=== PATIENT | female | born 1995 | race Caucasian/White ===

== ENCOUNTER 2017-05-27 13:17 | Emergency (ER) | payer OTHER ==
[~2017-05-27] VITALS: Ht 177.8 cm; Wt 61.2 kg
[~2017-05-27 13:17] MED LIST: ABILIFY5 MG; ANTIVERT25 MG PO; ANUSOL-HC30 GM PR; AUGMENTIN 875-1 EACH PO; CIPRO500 MG PO; FIORINAL 50-321 EACH PO; IBUPROFEN600 MG PO; NAPROSYN500 MG PO; NORCO 5-325 TA1 EACH PO; NORTREL1 EAC1 PO; PROMETHAZINE V240 ML PO; TYLENOL WITH C1 EACH PO; ZOFRAN ODT4 MG PO; ZOFRAN4 MG PO
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
[2017-05-27] MEDS ORDERED: ZOFRAN ODT4 MG PO (15:27)
== END 2017-05-27 15:35 | disposition home or self-care (01) ==
LOC: ED 13:17
DX: O21.0 Mild hyperemesis gravidarum (principal); Z3A.01 Less than 8 weeks gestation of pregnancy
CPT/HCPCS: 80053; 81001; 84703; 85025; 96374; 99283; J2405; J7030; J7040

== ENCOUNTER 2017-06-17 11:23 | Emergency (ER) | payer OTHER ==
[~2017-06-17] VITALS: Ht 177.8 cm; Wt 63.5 kg
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
[2017-06-17] MEDS ORDERED: ZOFRAN ODT4 MG PO (11:48)
== END 2017-06-17 12:38 | disposition home or self-care (01) ==
LOC: ED 11:23
DX: O21.0 Mild hyperemesis gravidarum (principal); Z91.018 Allergy to other foods; Z3A.09 9 weeks gestation of pregnancy
CPT/HCPCS: 96361; 96374; 99283; J2405; J7030

== ENCOUNTER 2017-06-28 00:32 | Emergency (ER) | payer OTHER ==
[~2017-06-28] VITALS: Ht 177.8 cm; Wt 61.2 kg
[2017-06-28] MEDS ORDERED: METOCLOPRAMIDE H5 MG PO (00:51)
== END 2017-06-28 03:12 | disposition home or self-care (01) ==
LOC: ED 00:32
DX: O21.0 Mild hyperemesis gravidarum (principal); Z91.018 Allergy to other foods; Z3A.10 10 weeks gestation of pregnancy
CPT/HCPCS: 80053; 81001; 85025; 96361; 96374; 96375; 99283; J2405; J2550; J7030

== ENCOUNTER 2017-07-04 20:43 | Emergency (ER) | payer OTHER ==
[~2017-07-04] VITALS: Ht 175.3 cm; Wt 63.5 kg
[~2017-07-04 20:43] MED LIST changes: +METOCLOPRAMIDE H5 MG PO
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
[2017-07-04] MEDS ORDERED: PROMETHAZINE HC25 M1 PR (22:20)
[2017-07-04] MEDS ORDERED: ZOFRAN ODT4 MG PO (22:20)
== END 2017-07-04 22:30 | disposition home or self-care (01) ==
LOC: ED 20:43
DX: O21.0 Mild hyperemesis gravidarum (principal); Z91.018 Allergy to other foods; Z3A.11 11 weeks gestation of pregnancy
CPT/HCPCS: 80048; 81001; 85025; 96361; 96374; 99283; J2550; J7030

== ENCOUNTER 2017-07-17 16:27 | Emergency (ER) | payer OTHER ==
[~2017-07-17] VITALS: Ht 175.3 cm; Wt 63.5 kg
[~2017-07-17 16:27] MED LIST changes: +PROMETHAZINE HC25 M1 PR
[2017-07-17] MEDS ORDERED: ONDANSETRON ODT8 MG PO (18:14)
== END 2017-07-17 19:00 | disposition home or self-care (01) ==
LOC: ED 16:27
DX: O21.0 Mild hyperemesis gravidarum (principal); Z91.018 Allergy to other foods; Z3A.13 13 weeks gestation of pregnancy
CPT/HCPCS: 80053; 83690; 85025; 96361; 96374; 99283; J2405; J7030

== ENCOUNTER 2017-08-15 15:47 | Emergency (ER) | payer OTHER ==
[~2017-08-15] VITALS: Ht 175.3 cm; Wt 63.5 kg
[~2017-08-15 15:47] MED LIST changes: +ONDANSETRON ODT8 MG PO
[2017-08-15] MEDS ORDERED: ZOFRAN ODT4 MG PO (18:52)
== END 2017-08-15 18:58 | disposition home or self-care (01) ==
LOC: ED 15:47
DX: O21.0 Mild hyperemesis gravidarum (principal); O99.282 Endocrine, nutritional and metabolic diseases complicating pregnancy, second trimester; E86.0 Dehydration; Z3A.16 16 weeks gestation of pregnancy; Z91.018 Allergy to other foods
CPT/HCPCS: 80048; 81001; 96361; 96374; 99283; J2405; J7030; J7120

== ENCOUNTER 2017-12-07 13:19 | Observation (INO) | payer OTHER ==
--- NOTE | 2017-12-07 14:37 | PR ---
[facility] [address] [place] [address] Signed AP Progress Notes Datetime Report Generated by CPN: 12/07/2017 14:36 Chief Complaint: Left Flank pain. U/S shows hydronephrosis and hydroureter on left PHYSICAL EXAM: [id number] General: Normal Abdomen: Normal Physical Exam Comments: Feeling little better VITAL SIGNS: [id number] Vital Signs: Reviewed; Within Normal Limits EXAM: [id number] Dilatation: 0.0 Effacement: 0 Station: -3 Contraction Comments: none MEMBRANES: [id number] Membranes: Intact Fetus A: [id number] FHR Baseline: 135 Variability: Moderate 6-25bpm Accelerations: 15X15 Fetus B: [id number] PROGRESS NOTES: [id number] Impression: Left Kidney Stone Plan: Urology Consult DIscussed results and plan with patient Signing Physician: Ronald Ferguson MD Copies: ~ *Electronically Signed* 12/07/17 1436 RONALD FERGUSON MD PATIENT NAME: MERRY NOBLE MUNA PROGRESS NOTE DATE OF : 89 PHYSICIAN: RONALD FERGUSON MD RPT #: [id number] REPORT IS CONFIDENTIAL AND NOT TO BE RELEASED WITHOUT AUTHORIZATION
--- NOTE | 2017-12-07 18:24 | PR ---
[facility] [address] [facility] [place], [place] [address] Signed AP Progress Notes Datetime Report Generated by CPN: 12/07/2017 18:23 Chief Complaint: Left Flank pain PHYSICAL EXAM: [id number] General: Normal Abdomen: Normal Physical Exam Comments: Feeling little better VITAL SIGNS: [id number] Vital Signs: Reviewed; Within Normal Limits EXAM: [id number] Dilatation: 0.0 Effacement: 0 Station: -3 Contraction Comments: none MEMBRANES: [id number] Membranes: Intact Fetus A: [id number] FHR Baseline: 120 Variability: Moderate 6-25bpm Accelerations: 15X15 Fetus B: [id number] PROGRESS NOTES: [id number] Impression: Left Ureteral Calculus Plan: Appreciate Urology Consult Continue with IV fluids and pain meds, strain urine; hope to pass stone soon. Intermittent monitoring Signing Physician: Sandra Ferguson MD Copies: ~ *Electronically Signed* 12/07/17 1823 SANDRA FERGUSON MD PATIENT NAME: MERRY NOBLE PROGRESS NOTE DATE OF : 93 PHYSICIAN: SANDRA FERGUSON MD RPT #: [id number] REPORT IS CONFIDENTIAL AND NOT TO BE RELEASED WITHOUT AUTHORIZATION
--- NOTE | 2017-12-19 10:03 | CONS ---
[facility] [address] [place], [place] [address] Signed DATE OF CONSULTATION: 12/07/2017 CHIEF COMPLAINT: Sudden onset left flank pain in a patient with a recent history of successful trial of passage of a right ureteral stone. HISTORY OF PRESENTING ILLNESS: Ms. Noble is a very pleasant 22-year-old female, who is currently 33 weeks , who presented to the emergency room earlier today with a 1-2 hour history of sudden onset and progressively worsening left-sided flank pain. She was evaluated by Dr. Chavez, who at that time placed her in the [facility] and started IV pain control. She was also given IV fluid hydration as well along with fentanyl as needed for pain. Dr. Chavez contacted me to evaluate the patient. Of note, the patient was recently seen on October 31, 2017, for very similar complaints, however, she was experiencing rather sudden onset right-sided flank pain. At that time, she was found to have a distal ureteral calculus and was initially slated to go to the operating room for extraction. However, she was able to pass the stone and did not require any surgical intervention at the time. The patient reports sudden onset severe left-sided flank pain along with the nausea and vomiting earlier today. She denies any fevers or chills or gross hematuria. She underwent a renal ultrasound on initial evaluation, which revealed dilation of the left kidney and distal left ureter. Ultrasound initially was unable to fully evaluate her bladder due to lack of the presence of urine within the bladder. The veterinary laboratory technician returned about 2-1/2 hours later and repeated the study and it revealed again moderate hydronephrosis of the left kidney with no evidence of ureteral jet on the left side. Also, of note is an approximately 4 to 5 mm left ureterovesical junction stone with ureteral dilation noted just proximal to the stone. She is experiencing active left-sided flank pain as well as groin pain and appears very uncomfortable. REVIEW OF SYSTEMS: Positive for severe left-sided flank pain as well as nausea and vomiting. Review of systems is negative for fevers, chills, gross hematuria, or abdominal pain. PAST MEDICAL HISTORY: Significant for nephrolithiasis during her . Also, significant for vertigo. PAST SURGICAL HISTORY: She has a history of left-sided knee surgery for meniscal tear two years ago. MEDICATIONS: The patient does not currently have any outpatient medications. ALLERGIES: None. Electronically Signed By: ANDREA AUSTIN MD 12/19/17 1003 PATIENT NAME: MERRY NOBLE CONSULTATION DATE OF : [birth year] REPORT #: [id number] PHYSICIAN: ANDREA AUSTIN MD PCP: SANDRA CHAVEZ MD REPORT IS CONFIDENTIAL AND NOT TO BE RELEASED WITHOUT AUTHORIZATION [facility] [address] [place] [id number] Signed FAMILY HISTORY: There is no family history of nephrolithiasis. She has no personal history of nephrolithiasis until just this past October 2017 when she passed her first stone on the right side. PHYSICAL EXAMINATION: VITAL SIGNS: Blood pressure is in the 120s over 60s. She is afebrile. Her pulse is within normal limits. GENERAL: The patient is alert and awake and answering all questions appropriately. She is in moderate amount of distress and appears very uncomfortable and is clutching her left flank. CARDIOVASCULAR: Reveals regular rate and rhythm. LUNGS: Clear to auscultation. ABDOMEN: Abdomen is gravid, but is otherwise normal. She has a notable left-sided costovertebral angle tenderness. She is also tender to palpation in the lower left groin area. LABORATORY DATA: Her urinalysis was checked approximately three days ago at Dr. Chavez's office and apparently revealed a contaminated specimen. Her urine is being checked again today with the results currently pending. ASSESSMENT: Left ureterovesical junction stone with associated hydronephrosis and flank pain in a female, who is 33 weeks . PLAN: We will continue vigorous IV fluid hydration for now and hopes that the patient will pass the 4-5 mm stone on her own. I have asked the nursing staff to strain all of her urine for the rest of the day and tomorrow. She will be made n.p.o. tonight at midnight in preparation for possible stone extraction tomorrow if that is required. We will continue her current pain control, which includes oral Percocets as well as Dilaudid q.3 hours p.r.n. breakthrough pain. A bladder ultrasound will be repeated tomorrow morning to re-evaluate for the presence or absence of her left distal ureterovesical junction calculus. Andrea Austin MD AR/MODL Electronically Signed By: ANDREA AUSTIN MD 12/19/17 1003 PATIENT NAME: MERRY NOBLE CONSULTATION DATE OF : 93 REPORT #: [id number] PHYSICIAN: ANDREA AUSTIN MD PCP: SANDRA CHAVEZ MD REPORT IS CONFIDENTIAL AND NOT TO BE RELEASED WITHOUT AUTHORIZATION [facility] [address] [place] [address] Signed /[id number] Copies: ~ Electronically Signed By: ANDREA AUSTIN MD 12/19/17 1003 PATIENT NAME: MERRY NOBLE CONSULTATION DATE OF : [birth year] REPORT #: [id number] PHYSICIAN: ANDREA AUSTIN MD PCP: SANDRA CHAVEZ MD REPORT IS CONFIDENTIAL AND NOT TO BE RELEASED WITHOUT AUTHORIZATION
== END 2017-12-07 21:50 | disposition home or self-care (01) ==
LOC: FBCO 13:19 → FBC 15:00
PROVIDERS: ADMIT General Practice
DX: O99.89 Other specified diseases and conditions complicating pregnancy, childbirth and the puerperium (principal); N13.2 Hydronephrosis with renal and ureteral calculous obstruction; N13.4 Hydroureter; Z3A.33 33 weeks gestation of pregnancy
CPT/HCPCS: 59025; 76775; 76815; 80053; 81001; 82365; 85025; 99214; G0378; J1170; J2550; J3010; J7120

== ENCOUNTER 2018-01-31 07:41 | Inpatient (IN) | payer OTHER ==
[~2018-01-31] VITALS: Ht 177.3 cm; Wt 82.0 kg
--- OUTSIDE RECORDS SUMMARY | ~2018-01-31 | XMS | Clinical Summary ---
Demographics + + + | Address | [address] [place] | | | [place] [address] | + + + | Home Phone | | + + + | Preferred Language | Unknown | + + + | Marital Status | Single | + + + | Synagogue Affiliation | 1013 | + + + | Race | Unknown | + + + | Ethnic Group | Unknown | + + + Author + + + | Author | [facility] | | | and [place] | + + + | Organization | [facility] | | | and [...] [place], [place] | | | | | [address] | | + + + + + | Christiana Noble | ECON | [address] | | | | | [place], [place] | | | | | [address] | | + + + + + Care Team Providers + +------+ + | Care Combine Inspector Name | Role | Phone | + +------+ + PP | Unavailable | + +------+ + Allergies Not on File Current Medications Not on file Active Problems Not [...] on file | | + + + Plan of Treatment + + + + + | Health Maintenance | Due Date | Last Done | Comments | + + + + + | Vaccine: HPV (1 of 3 | | | | | - Female 3 Dose | 4 | | | | Series) | | | | + + + + + | Vaccine: | | | | | Dtap/Tdap/Td (1 - | 2 | | | | Tdap) | | | | + + + + + | CERVICAL CANCER | | | | | SCREENING (PAP EVERY | 4 | | | | 3 YEARS 21-64 ) | | | | + + + + + | Vaccine: Influenza | | | | | (Season Ended) | 8 | | | + + + + + Results Not on filefrom Last 3 Months Insurance + +--------+ +--------+ +---------+ | Payer | Benefi | Subscriber | Type | Phone | Address | | | t Plan | ID | | | | | | / | | | | | | | Group | | | | | + +--------+ +--------+ +---------+ | [employer] | [employer] | xxxxxxxx | Medica | [phone] | | MEDICAID HMO | HEALTH | | id | 9821 | | | | [place] | | | | | | | [place] | | | | | + +--------+ +--------+ +---------+ + +--------+ +--------+ + + | Guarantor Name | Accoun | Relation to | Date | Phone | Billing Address | | | t Type | Patient | of | | | | | | | | | | + +--------+ +--------+ + + | MERRY NOBLE | Person | Self [birth year] | Home: | [address] | | | al/Fam | | 1994 | [phone] | [place] [address] | | | taylor | | | [phone] | | + +--------+ +--------+ + +"
--- NOTE | 2018-01-31 11:58 | NUR ---
01/31/18 1158 Donna [place] 1136 ARRIVED IN PACU WIDE AWAKE HOLDING BABY. MOM BREAST FEEDING BABY WITH HELP FROM [facility]BC RN. FUNDAL MASSAGE DONE Q5 MINUTES X4. IV IN LFA PATENT WITH LR WITH 30 PITOCIN INFUSING.
--- NOTE | 2018-02-01 06:49 | OR ---
[facility] [address], [place] [address] Signed DATE OF OPERATION: 01/31/2018 SURGEON: Ronald Chavez MD PREOPERATIVE DIAGNOSES: Oligohydramnios, post-dates , and unfavorable cervix. POSTOPERATIVE DIAGNOSES: Oligohydramnios, post-dates , and unfavorable cervix. PROCEDURE PERFORMED: Primary low-transverse segment section, delivery of live female infant. AUTO INSPECTOR: Dr. Tompkins. ANESTHESIA: Spinal. ESTIMATED BLOOD LOSS: 400 mL. COMPLICATIONS: None. DRAINS: Aguilar to bladder. FINDINGS: Live female infant, Apgars 8 and 9. Weight 6 pounds 11 ounces. There was minimal fluid seen during the procedure. The infant was noted to be in vertex AZIZA presentation. Uterus and both tubes and ovaries were normal. There was a very thin lower uterine segment. DESCRIPTION OF PROCEDURE: The patient was brought into the operating room, placed in supine position. After adequate spinal anesthesia was obtained, she was prepped and draped in usual sterile fashion. Aguilar catheter was placed in the bladder. A Pfannenstiel skin incision was made with a scalpel extended through subcutaneous tissue with the scalpel and Bovie. The fascia was nicked with scalpel and extended in transverse fashion using curved Electronically Signed By: RONALD CHAVEZ MD 02/01/18 0649 PATIENT NAME: MERRY NOBLE OPERATIVE REPORT DATE OF : [birth year] REPORT #: [id number] PHYSICIAN: RONALD CHAVEZ MD PCP: RONALD CHAVEZ MD REPORT IS CONFIDENTIAL AND NOT TO BE RELEASED WITHOUT AUTHORIZATION [facility] [address], [place] [address] Signed scissors. The underlying abdominal musculature was bluntly and sharply from the fascia above and below the incision. The abdominal musculature was bluntly and sharply along the midline. The peritoneum was grasped with hemostats, elevated, nicked with Metzenbaum scissors extended in vertical fashion using Metzenbaum scissors. The Jey self-retaining retractor was inserted into the incision and tightened in place. The lower uterine segment was identified and examined, noted to be quite thin, so scalpel was used in midline making very shallow neck and then Allis Terrell clamps were used to elevate the lower uterine segment on either side of the incision and the incision was opened further, blunt knife handle was then used to bluntly separate the remaining fibers and then finger dissection used to open the incision in transverse fashion. was noted to be in vertex AZIZA presentation. 's head was easily delivered from the incision. Rest of the infant was easily delivered from the incision. The mouth and nose were suctioned with bulb syringe, while the cord was doubly clamped and cut. The was passed off table in good condition to the awaiting nurse. The placenta was manually removed and the uterine cavity explored with a lap pad to remove any retained membranes. An angle stitch of #0 Monocryl was placed at one end of the incision and a running locking stitch of #0 Monocryl starting at the other end was used to close the incision. A 2nd running stitch of #0 Monocryl was used to imbricate the 1st layer. There were some small bleeding areas along the right angle. This was controlled with several [id number] stitches of #0 Monocryl. Good hemostasis was obtained. The entire pelvis was irrigated, suctioned, and examined. Any superficial bleeding spots were cauterized with the Bovie. Good hemostasis was then noted. The Jey retractor was removed and a sheet of ACell placed over the lower uterine segment to help with healing. The anterior wall peritoneum was then closed using running stitch of #2-0 Vicryl suture. The abdominal musculature was reapproximated using interrupted stitches of #0 Vicryl suture. The abdominal wall was then irrigated, suctioned, and examined. Any superficial bleeding spots were cauterized with the Bovie. The abdominal musculature was sprinkled with powdered ACell, then the fascia closed using 2 running stitches of #0 Vicryl suture meeting in the midline. Subcutaneous tissue was irrigated, suctioned, and examined. Any bleeding spots were cauterized with the Bovie. The remaining powdered ACell was sprinkled on subcutaneous tissue, which was then closed using interrupted stitches of #3-0 Vicryl suture. The skin was reapproximated using skin clips. The patient tolerated the procedure well, went to recovery room in good condition. The sponge, needle, and instrument count were correct at the end of the procedure. The placenta was sent to Pathology for identification. Ronald Chavez MD Electronically Signed By: RONALD CHAVEZ MD 02/01/18 0649 PATIENT NAME: MERRY NOBLE OPERATIVE REPORT DATE OF : [birth year] REPORT #: [id number] PHYSICIAN: RONALD CHAVEZ MD PCP: RONALD CHAVEZ MD REPORT IS CONFIDENTIAL AND NOT TO BE RELEASED WITHOUT AUTHORIZATION [facility] [address], [place] [address] Signed ELISE/EMY /[id number] Copies: ~ Electronically Signed By: RONALD CHAVEZ MD 02/01/18 0649 PATIENT NAME: REALMERRY MUNA OPERATIVE REPORT DATE OF : [birth year] REPORT #: [id number] PHYSICIAN: RONALD CHAVEZ MD PCP: RONALD CHAVEZ MD REPORT IS CONFIDENTIAL AND NOT TO BE RELEASED WITHOUT AUTHORIZATION
--- NOTE | 2018-02-01 10:21 | PR ---
[facility] [address] [place] [address] Signed PP Progress Notes Datetime Report Generated by CPN: 02/01/2018 10:21 SUBJECTIVE: [id number] Pain: Within normal limits Pain Comments: except some right shoulder pain Nausea/Vomiting: Denies Vital Signs: [id number] Vital Signs: Reviewed; Within Normal Limits Notable Details: PP Hgb/Hct = 11.3/32.3 EXAM: [id number] Abdomen/Uterus: Normal Lochia: Normal Extremities: Normal Incision: Normal IMPRESSION/PLAN/PROCEDURES: [id number] Impression: Normal progression Plan: Continue present management Procedures: None Progress Notes: Doing well. Increased activity as tolerated. May shower. Signing Physician: Sandra Ferguson MD Copies: ~ *Electronically Signed* 02/01/18 1021 SANDRA FERGUSON MD PATIENT NAME: MERRY NOBLE PROGRESS NOTE DATE OF : 93 PHYSICIAN: SANDRA FERGUSON MD RPT #: [id number] REPORT IS CONFIDENTIAL AND NOT TO BE RELEASED WITHOUT AUTHORIZATION
--- NOTE | 2018-02-02 12:04 | PR ---
[facility] [address] [facility] [place], [place] [address] Signed PP Progress Notes Datetime Report Generated by CPN: 02/02/2018 12:04 SUBJECTIVE: [id number] Pain: Within normal limits Pain Comments: except some right shoulder pain Nausea/Vomiting: Denies Bowel Movement: Yes Vital Signs: [id number] Vital Signs: Reviewed; Within Normal Limits Notable Details: PP Hgb/Hct = 11.3/32.3 EXAM: [id number] Abdomen/Uterus: Normal Lochia: Normal Extremities: Normal Incision: Normal IMPRESSION/PLAN/PROCEDURES: [id number] Impression: Normal progression Plan: Continue present management Procedures: None Progress Notes: Doing well, but would like to stay until tomorrow Signing Physician: Sandra Ferguson MD Copies: ~ *Electronically Signed* 02/02/18 1204 SANDRA FERGUSON MD PATIENT NAME: MERRY NOBLE PROGRESS NOTE DATE OF : 93 PHYSICIAN: SANDRA FERGUSON MD RPT #: [id number] REPORT IS CONFIDENTIAL AND NOT TO BE RELEASED WITHOUT AUTHORIZATION
--- NOTE | 2018-02-03 13:56 | PR ---
[facility] [address] [place] [address] Signed PP Progress Notes Datetime Report Generated by CPN: 02/03/2018 13:56 SUBJECTIVE: [id number] Pain: Within normal limits Pain Comments: except some right shoulder pain Nausea/Vomiting: Denies Bowel Movement: Yes Vital Signs: [id number] Vital Signs: Reviewed; Within Normal Limits Notable Details: PP Hgb/Hct = 11.3/32.3 EXAM: [id number] Abdomen/Uterus: Normal Lochia: Normal Extremities: Normal Incision: Normal IMPRESSION/PLAN/PROCEDURES: [id number] Impression: Normal progression Plan: Discharge Procedures: None Progress Notes: Doing well, erin to go home. Signing Physician: Ronald Ferguson MD Copies: ~ *Electronically Signed* 02/03/18 1356 RONALD FERGUSON MD PATIENT NAME: MERRY NOBLE PROGRESS NOTE DATE OF : [birth year] PHYSICIAN: RONALD FERGUSON MD RPT #: [id number] REPORT IS CONFIDENTIAL AND NOT TO BE RELEASED WITHOUT AUTHORIZATION
== END 2018-02-03 15:00 | disposition home or self-care (01) | DRG 766 ==
LOC: FBCO 07:41 → US 07:41 → FBC 08:38
PROVIDERS: ADMIT General Practice
PROC: 10D00Z1 Extraction of Products of Conception, Low, Open Approach (ICD-10-PCS; principal; 2018-01-31 11:00)
DX: O41.03X0 Oligohydramnios, third trimester, not applicable or unspecified (principal); Z3A.40 40 weeks gestation of pregnancy; Z37.0 Single live birth; O48.0 Post-term pregnancy
CPT/HCPCS: 01961; 36415; 59025; 76819; 85027; 88307; C1763; J0690; J1170; J2274; J2405; J2550; J2590; J7120

== ENCOUNTER 2019-07-16 02:32 | Emergency (ER) | payer OTHER ==
[~2019-07-16] VITALS: Ht 175.3 cm; Wt 72.6 kg
--- OUTSIDE RECORDS SUMMARY | ~2019-07-16 | XMS | Clinical Summary ---
Demographics + + + | Address | [address] [place] | | | [place] [address] | + + + | Home Phone | | + + + | Preferred Language | Unknown | + + + | Marital Status | Single | + + + | Christianity Affiliation | 1013 | + + + | Race | Unknown | + + + | Ethnic Group | Unknown | + + + Author + + + | Author | [facility] | | | and [place] | + + + | Organization | [facility] | | | and [place] | + + + | Address | Unknown | + + + | Phone | Unavailable | + + + Support + + + + + | Name | Relationship | Address | Phone | + + + + + | Roni Kilpatrick | ECON | [address] | | | | | [place], [place] | | | | | [address] | | + + + + + | Christiana Yoder | ECON | [address] | | | | | [place], [place] | | | | | [address] | | + + + + + Care Team Providers + +------+ + | Care Outside Sales Account Representative Name | Role | Phone | + +------+ + PCP | Unavailable | + +------+ + Allergies Not on File Medications Not on file Active Problems Not on file Social History + +-------+ +--------+------+ | Tobacco Use | Types | Packs/Day | Years | Date | | | | | Used | | + +-------+ +--------+------+ | Never Assessed | | | | | + +-------+ +--------+------+ + + + | Sex Assigned at | Date Recorded | | | | + + + | Not on file | | + + + + + + + | Job Start Date | Occupation | Industry | + + + + | Not on file | Not on file | Not on file | + + + + + + + + | Travel History | Travel Start | Travel End | + + + + + + | No recent travel history available. | + + Last Filed Vital Signs Not on file Plan of Treatment + + + + + | Health Maintenance | Due Date | Last Done | Comments | + + + + + | Vaccine: HPV (1 - | | | | | Female 3-dose | 8 | | | | series) | | | | + + + + + | Vaccine: | | | | | Dtap/Tdap/Td (1 - | 2 | | | | Tdap) | | | | + + + + + | Cervical Cancer | | | | | Screening (Pap) | 4 | | | + + + + + | Vaccine: Influenza | | | | | (#1) | 9 | | | + + + + + Results Not on filefrom Last 3 Months Insurance + +--------+ +--------+ +---------+--------+ | Payer | Benefi | Subscriber | Effect | Phone | Address | Type | | | t Plan | ID | oleg | | | | | | / | | Dates | | | | | | Group | | | | | | + +--------+ +--------+ +---------+--------+ | [employer] | MOD[employer] | [id number] | 01/09/20 | [id number] | | Medica | | MEDICAID HMO | HEALTH | | 13-Pre | 1 | | id | | | MDCD | | sent | | | | | | [place] | | | | | | + +--------+ +--------+ +---------+--------+ + +--------+ +--------+ + + | Guarantor Name | Accoun | Relation to | Date | Phone | Billing Address | | | t Type | Patient | of | | | | | | | | | | + +--------+ +--------+ + + | Cecilia Yoder | Person | Self [birth year] | [address] | | | maxi/Nick | | 1995 | [phone] | [place] [address] | | | [place] | | | 3 (Home) | | + +--------+ +--------+ + + Advance Directives Patient has advance care planning documents on file. For more information, please contact:Anirudh [facility] and [facility] [place] [address]"
--- OUTSIDE RECORDS SUMMARY | ~2019-07-16 | XMS | Clinical Summary ---
Demographics + + + | Address | [address] [place] | | | [place] [address] | + + + | Home Phone | | + + + | Preferred Language | Unknown | + + + | Marital Status | Single | + + + | Rastafarian Affiliation | 1013 | + + + | Race | Unknown | + + + | Ethnic Group | Unknown | + + + Author + + + | Author | [facility] | | | and [place] | + + + | Organization | [facility] | | | and [place] [...] [place], [place] | | | | | [address] | | + + + + + | Christiana Yoder | ECON | [address] | | | | | [place], [place] | | | | | [address] | | + + + + + Care Team Providers + +------+ + | Care Inventory Control Coordinator Name | Role | Phone | + [...] | [employer] | MODA | [id number] | 01/09/20 | [id number] | | Medica | | MEDICAID HMO [...] | | maxi/Nick | | 1995 | [phone] | [place] [address] | | | [place] | | | 3 (Home) | | + +--------+ +--------+ + + Advance Directives Patient has advance care planning documents on file. For more information, please contact:Anirudh [facility] and [facility] [place] [address]"
[2019-07-16] MEDS ORDERED: NAPROXEN500 MG PO (03:59)
[2019-07-16] MEDS ORDERED: CYCLOBENZAPRINE10 MG PO (03:59)
== END 2019-07-16 04:10 | disposition home or self-care (01) ==
LOC: ED 02:32
DX: M26.69 Other specified disorders of temporomandibular joint (principal); Z87.442 Personal history of urinary calculi; Z91.041 Radiographic dye allergy status
CPT/HCPCS: 96374; 96375; 99283-25; J1200; J1885; J2765; J7030

== ENCOUNTER 2020-03-18 05:57 | Emergency (ER) | payer OTHER ==
[~2020-03-18] VITALS: Ht 175.3 cm; Wt 72.6 kg
--- OUTSIDE RECORDS SUMMARY | ~2020-03-18 | XMS | Clinical Summary ---
Demographics + + + | Address | [address] | | | [place] [address] | + + + | Home Phone | | + + + | Preferred Language | Unknown | + + + | Marital Status | Single | + + + | Methodist Affiliation | 1013 | + + + | Race | Unknown | + + + | Ethnic Group | Unknown | + + + Author + + + | Author | [facility] | | | and [place] | + + + | Organization | [facility] | | | and [place] | [...] [place], [place] | | | | | [address] | | + + + + + | Christiana Yoder | ECON | [address] | | | | | [place], [place] | | | | | [address] | | + + + + + Care Team Providers + +------+ + | Care Flatbed Driver Name | Role | Phone | + [...] | | | Dtap/Tdap/Td (1 - | 4 | | | | Tdap) | | | | + + + + + | Vaccine: HPV (1 - | | | | | Female 2-dose | 4 | | | | series) | | | | + + + + + | Cervical Cancer | | | | | Screening (Pap) | 4 | | | + + + + + | Vaccine: Influenza | | | | | (Season Ended) | 0 | | | + + + + [...] | [employer] | MODA | [id number] | 01/09/20 | [phone] | | Medica | | MEDICAID HMO [...] | | [address] | | | al/Nick | | 1995 | [phone] | [place] [address] | | | [place] | | | 3 (Home) | | + +--------+ +--------+ + + Advance Directives + + + + + | Type | Date Recorded | Patient | Explanation | | | | Design Project Manager | | + + + + + | Power of | | | | | Imaging Science Professor | | | | + + + + +"
--- OUTSIDE RECORDS SUMMARY | ~2020-03-18 | XMS | Clinical Summary ---
Demographics + + + | Address | [address] | | | [place] [address] | + + + | Home Phone | | + + + | Preferred Language | Unknown | + + + | Marital Status | Single | + + + | Mormonism Affiliation | 1013 | + + + | Race | Unknown | + + + | Ethnic Group | Unknown | + + + Author + + + | Author | [facility] | | | and [place] | + + + | Organization | [facility] | | | and [place] [...] [place], [place] | | | | | [address] | | + + + + + | Christiana Yoder | ECON | [address] | | | | | [place], [place] | | | | | [address] | | + + + + + Care Team Providers + +------+ + | Care Bottom Precipitator Operator Name | Role | Phone | + [...] | [employer] | MODA | [id number] | 01/09/20 | [phone] | | Medica | | MEDICAID HMO [...] | | al/Nick | | 1995 | [phone] | [place] [address] | | | [place] | | | 3 (Home) | | + +--------+ +--------+ + + Advance Directives + + + + + | Type | Date Recorded | Patient | Explanation | | | | Boiler Tender | | + + + + + | Power of | | | | | Drone Software Development Engineer | | | | + + + + +"
--- OUTSIDE RECORDS SUMMARY | ~2020-03-18 | XMS | Encounter Summary ---
Demographics + + + | Address | [address] [place] | | | [place] [address] | + + + | Home Phone | | + + + | Preferred Language | Unknown | + + + | Marital Status | Single | + + + | Bahai Affiliation | 1013 | + + + | Race | Unknown | + + + | Ethnic Group | Unknown | + + + Author + + + | Author | [facility] | | | and [place] | + + + | Organization | [facility] | | | and [place] [...] [place], [place] | | | | | [address] | | + + + + + | Christiana Yoder | ECON | [address] | | | | | [place], [place] | | | | | [address] | | + + + + + Care Team Providers + +------+ + | Care Charge Machine Operator Name | Role | Phone | + +------+ + PCP | Unavailable | + +------+ + Encounter Details +--------+ + + + + | Date | Type | Department | Care Team | Description | +--------+ + + + + | 03/21/ | Hospital | [facility] | Stacey Anderson | | | 2012 | Encounter | [facility] | MD [address]ir[address] | | | | | CENTER [address] | [address] [place], | | | | | [place], [place] | [place] [address] | | | | | [address] | [phone] | | | | | [phone] | | | | | | | Ambrocio Purdy | | | | | | MD [address] | | | | | | [address] [place] | | | | | | [place] [address] | | | | | | [phone] | | | | | | | | +--------+ + + + + Social History + +-------+ +--------+------+ | Tobacco [...] recent travel history available. | + + documented as of this encounter Plan of Treatment Not on filedocumented as of this encounter Visit Diagnoses Not on filedocumented in this encounter"
--- OUTSIDE RECORDS SUMMARY | ~2020-03-18 | XMS | Encounter Summary ---
Demographics + + + | Address | [address] [place] | | | [place] [address] | + + + | Home Phone | | + + + | Preferred Language | Unknown | + + + | Marital Status | Single | + + + | Rastafarian Affiliation | 1013 | + + + | Race | Unknown | + + + | Ethnic Group | Unknown | + + + Author + + + | Author | [facility] | | | and [place] | + + + | Organization | [facility] | | | and [place] [...] [place], [place] | | | | | [address] | | + + + + + | Christiana Yoder | ECON | [address] | | | | | [place], [place] | | | | | [address] | | + + + + + Care Team Providers + +------+ + | Care Public Information Specialist Name | Role | Phone | + +------+ + PCP | Unavailable | + +------+ + Encounter Details +--------+ + + + + | Date | Type | Department | Care Team | Description | +--------+ + + + + | 03/21/ | Hospital | [facility] | Stacey Anderson | | | 2012 | Encounter | [facility] | MD [address] | | | | | CENTER [address] | [address] [place], | | | | | [place], [place] | [place] [address] | | | | | [address] | [phone] | | | | | [phone] | | | | | | | Ambrocio Purdy | | | | | | MD [place] [address] | | | | | | [address] [place] | | | | | | [place] [address] | | | | | | [phone] | | | | | | | [...]
[~2020-03-18 05:57] MED LIST changes: +CYCLOBENZAPRINE10 MG PO; +NAPROXEN500 MG PO
[2020-03-18] MEDS ORDERED: MECLIZINE HCL25 MG PO (06:35)
[2020-03-18] MEDS ORDERED: TRANSDERM-SCOP1 EACH TD (06:35)
== END 2020-03-18 07:22 | disposition home or self-care (01) ==
LOC: ED 05:57
DX: G43.909 Migraine, unspecified, not intractable, without status migrainosus (principal)
CPT/HCPCS: 96374; 96375; 99283-25; J1200; J1885; J2765; J7030

== ENCOUNTER 2021-05-15 18:19 | Emergency (ER) | payer OTHER ==
[~2021-05-15] VITALS: Ht 175.3 cm; Wt 72.6 kg
[~2021-05-15 18:19] MED LIST changes: +MECLIZINE HCL25 MG PO; +TRANSDERM-SCOP1 EACH TD
[2021-05-15] MEDS ORDERED: MECLIZINE HCL25 MG PO (23:34)
== END 2021-05-15 23:57 | disposition home or self-care (01) ==
LOC: ED 18:19
DX: G43.909 Migraine, unspecified, not intractable, without status migrainosus (principal); R42 Dizziness and giddiness; Z91.018 Allergy to other foods
CPT/HCPCS: 80053; 85025; 96374; 96375; 99284-25; J1200; J1885; J2765; J7030

== ENCOUNTER 2021-07-23 08:40 | Emergency (ER) | payer OTHER ==
[~2021-07-23] VITALS: Ht 175.3 cm; Wt 83.2 kg
[2021-07-23] MEDS ORDERED: EXCEDRIN MIGRA1 EAC2 PO (09:05)
[2021-07-23] MEDS ORDERED: TRANSDERM-SCOP1 EACH TD (10:44)
== END 2021-07-23 11:00 | disposition home or self-care (01) ==
LOC: ED 08:40
DX: G43.909 Migraine, unspecified, not intractable, without status migrainosus (principal); R42 Dizziness and giddiness
CPT/HCPCS: 96374; 96375; 99283-25; J1885; J2765; J7030

== ENCOUNTER 2022-02-07 17:31 | Emergency (ER) | payer BC, OTHER ==
[~2022-02-07] VITALS: Ht 175.3 cm; Wt 81.7 kg
[~2022-02-07 17:31] MED LIST changes: +EXCEDRIN MIGRA1 EAC2 PO
[2022-02-07] MEDS ORDERED: ONDANSETRON ODT8 MG PO (18:52)
== END 2022-02-07 19:00 | disposition home or self-care (01) ==
LOC: ED 17:31
DX: K52.9 Noninfective gastroenteritis and colitis, unspecified (principal); Z91.010 Allergy to peanuts; Z79.899 Other long term (current) drug therapy
CPT/HCPCS: 96374; 96375; 99283-25; A9270; J1885; J2550; J2765; J7030

== ENCOUNTER 2024-08-24 08:24 | Inpatient (IN) | payer OTHER ==
[~2024-08-24] VITALS: Ht 175.3 cm; Wt 88.5 kg
[~2024-08-24 08:24] MED LIST changes: +ONDANSETRON ODT4 MG PO; +PROMETHAZINE HC25 M1 PO
[2024-09-02] MEDS ORDERED: LACTATED RINGER'S 2,000 ML IV PRN (10:15)
[2024-09-02] MEDS ORDERED: LACTATED RINGER'S 1,000 ML IV SCH (10:15)
[2024-09-03] MEDS ORDERED: LACTATED RINGER'S 1,000 ML IV SCH ×2 (05:00→09:43)
[2024-09-03 05:29] VITALS: BP 128/81
[2024-09-03 05:31] LABS: HEMATOCRIT 33.9 % (35.0-50.0); HEMOGLOBIN 11.7 g/dL (12.0-18.0); MCH 29.8 (27-36); MCHC 34.5 g/dl (30-36); MCV 86.3 fl (81-99); RBC 3.93 M/ul (4.3-5.7); RDW 13.5 (10.5-15.0)
[2024-09-03 05:56] LABS: AMPHETAMINES, URINE NEGATIVE (NEGATIVE); BARBITURATES, URINE NEGATIVE (NEGATIVE); BENZODIAZEPINE, URINE NEGATIVE (NEGATIVE); BUPRENORPHINE, URINE NEGATIVE (NEGATIVE); CANNABINOID, URINE NEGATIVE (NEGATIVE); COCAINE, URINE NEGATIVE (NEGATIVE); ECSTASY, URINE NEGATIVE (NEGATIVE); FENTANYL, URINE NEGATIVE (NEGATIVE); METHADONE, URINE NEGATIVE (NEGATIVE); OPIATES, URINE NEGATIVE (NEGATIVE); OXYCODONE, URINE NEGATIVE (NEGATIVE); PHENCYCLIDINE, URINE NEGATIVE (NEGATIVE)
[2024-09-03 06:19] LABS: ABO A; ANTIBODY SCREEN NEGATIVE; RH POSITIVE
[2024-09-03] MEDS ORDERED: LIDOCAINE HCL 1% 5 ML SDV INJ ONE (07:00)
[2024-09-03] MEDS ORDERED: IBLOOD GLUCOSE TEST STRIP 1 EA TEST VI PRN (07:00)
[2024-09-03] MEDS ORDERED: CEFAZOLIN SODIUM 2 GM/20 ML SYR IV SCH (07:00)
[2024-09-03] MEDS ORDERED: SOD+POT BICARB/CITRIC ACID 2 EA TABLET.EFF PO SCH (07:00)
[2024-09-03] MEDS ORDERED: BUPIVACAINE 0.75% IN DEXTROSE 2 ML AMP ONE (08:06)
[2024-09-03] MEDS ORDERED: fentaNYL citrate 100 MCG/2 ML VIAL ONE (08:06)
[2024-09-03] MEDS ORDERED: ondansetron HCL 4 MG/2 ML VIAL ONE (08:06)
[2024-09-03] MEDS ORDERED: MORPHINE SULFATE 1 MG/ML VIAL ONE (08:06)
[2024-09-03] MEDS ORDERED: LIDOCAINE HCL 2% 5 ML SDV ONE (08:06)
[2024-09-03] MEDS ORDERED: OXYTOCIN 10 UNITS/ML VIAL ONE (08:06)
[2024-09-03] MEDS ORDERED: PHENYLEPHRINE HCL 10 MG/ML VIAL ONE (08:32)
[2024-09-03] MEDS ORDERED: LACTATED RINGER'S 1,000 ML IV ONE (08:49)
[2024-09-03] MEDS ORDERED: Ropivacaine HCl 0.5% 30 ML VIAL ONE (08:59)
[2024-09-03] MEDS ORDERED: SODIUM CHLORIDE 0.9% 20 ML IV ONE (08:59)
[2024-09-03] MEDS ORDERED: dexmedeTOMIDine HCl 200 MCG/2 ML VIAL ONE (09:08)
[2024-09-03] MEDS ORDERED: DEXAMETHASONE SOD PHOS 4 MG/ML VIAL ONE ×2 (09:13)
[2024-09-03] MEDS ORDERED: NALOXONE HCL 0.4 MG SYR IV PRN (09:15)
[2024-09-03] MEDS ORDERED: ondansetron HCL 4 MG/2 ML VIAL IV PRN (09:15)
[2024-09-03] MEDS ORDERED: KETOROLAC TROMETHAMINE 30 MG/ML VIAL IV PRN (09:15)
[2024-09-03] MEDS ORDERED: PROCHLORPERAZINE EDISYLATE 10 MG/2 ML VIAL IV PRN (09:15)
[2024-09-03] MEDS ORDERED: HYDROmorphone HCL 1 MG/ML SYR IV PRN (09:15)
[2024-09-03] MEDS ORDERED: diphenhydrAMINE HCL 50 MG/ML VIAL IV PRN (09:15)
[2024-09-03] MEDS ORDERED: SENNOSIDES/DOCUSATE 1 EA TAB PO SCH (09:39)
[2024-09-03] MEDS ORDERED: OXYCODONE/APAP 5/325 TAB PO PRN (09:45)
[2024-09-03] MEDS ORDERED: HYDROCODONE/ACETA 5/325 TAB PO PRN (09:45)
[2024-09-03] MEDS ORDERED: LIDOCAINE 2% VISCOUS 6 ML SYR TOP ONE (09:45)
[2024-09-03] MEDS ORDERED: PROMETHAZINE HCL 25 MG TAB PO PRN (09:45)
[2024-09-03] MEDS ORDERED: OXYTOCIN/0.9 % SODIUM CHLORIDE 500 ML IV SCH (09:45)
[2024-09-03] MEDS ORDERED: METOCLOPRAMIDE HCL 10 MG/2 ML SDV IV PRN (09:45)
[2024-09-03] MEDS ORDERED: OXYCODONE HCL 5 MG TAB PO PRN (09:45)
[2024-09-03] MEDS ORDERED: bisacodyL 10 MG SUPP PR PRN (09:45)
[2024-09-03] MEDS ORDERED: PROMETHAZINE HCL 25 MG SUPP PR PRN (09:45)
--- NOTE | 2024-09-03 09:59 | NUR ---
09/03/24 0959 Kassie Aguayo 0940-PT TAKEN FROM OR BACK TO [facility] ROOM. PT A+OX4, PT DENIES PAIN OR NAUSEA. [facility] RN AT BEDSIDE ASSISTING WITH . VSS ON RA, RR EVEN AND UNLABORED.
[2024-09-03 10:21] VITALS: BP 103/63
[2024-09-03] MEDS ORDERED: SIMETHICONE 125 MG TABLET CHEWABLE PO SCH (11:00)
[2024-09-03] MEDS ORDERED: KETOROLAC TROMETHAMINE 30 MG/ML VIAL IV SCH (14:00)
[2024-09-04 06:09] LABS: HEMATOCRIT 28.6 % (35.0-50.0); HEMOGLOBIN 9.7 g/dL (12.0-18.0); MCH 29.7 (27-36); MCV 87.2 fl (81-99); RBC 3.28 M/ul (4.3-5.7); RDW 13.5 (10.5-15.0)
--- NOTE | 2024-09-04 08:53 | OR ---
[address] [address] Signed DATE OF OPERATION: 09/03/2024 SURGEON: Ava Richard MD PREOPERATIVE DIAGNOSES: 1. Term at 39 weeks and 2 days. 2. Previous section x1. POSTOPERATIVE DIAGNOSES: 1. Term at 39 weeks and 2 days. 2. Previous section x1. PROCEDURE PERFORMED: Repeat low-transverse section via Pfannenstiel skin incision. GENERAL LABOR: Fiorella Wilcox MD ANESTHESIA: Spinal. ESTIMATED BLOOD LOSS: 500 mL. IV FLUIDS: See Anesthesia record. URINE OUTPUT: See Anesthesia record. SPECIMEN: None. COMPLICATIONS: None. FINDINGS: Viable male infant in cephalic position. Apgars pending. Weight pending. Normal-appearing uterus, tubes, and ovaries. Electronically Signed By: AVA RICHARD MD 09/04/24 0853 PATIENT NAME: MERRY NOBLE OPERATIVE REPORT DATE OF : [birth year] REPORT #: [id number] PHYSICIAN: AVA RICHARD MD PCP: AUSTIN FIGUEREDO PA-C REPORT IS CONFIDENTIAL AND NOT TO BE RELEASED WITHOUT AUTHORIZATION [address] [address] Signed INDICATION AND CONSENT: The patient is a 29-year-old G3, P1-0-1-1 at 39 weeks and 2 days by LMP equals to a six-week ultrasound. She had a previous with her previous , and she desired a repeat , which was scheduled for today. All risks, benefits, alternatives and indications were reviewed with the patient in detail including the risk of bleeding, infection, damage to surrounding structures, risks of requiring future restorative operations and a rare risk of maternal and injury or . The patient was also consented for the possibility of blood transfusion and those inherent risks. All consents were signed x2. PROCEDURE IN DETAIL: The patient was taken to the operating room with IV fluids running and pneumatic compression stockings applied to lower extremities. Two grams of Ancef were given for infection prophylaxis. She was prepped and draped in a dorsal supine position with a leftward tilt and a Aguilar catheter was inserted. A Pfannenstiel skin incision was made with a scalpel. Her previous incision was removed. The incision was carried down to the fascia with the scalpel. The fascia was incised and extended laterally using Shrestha scissors. The inferior aspect of the fascia was grasped with April clamps and the underlying rectus muscles and pyramidalis was dissected out with Shrestha scissors. In a similar fashion, superior aspect of the fascia was elevated with a April clamp and rectus muscles were dissected out. Hemostasis was achieved with a Bovie. The rectus muscle was in the midline down to a level of the pubic symphysis. Preperitoneal fatty tissue was bluntly dissected to expose the intraabdominal cavity. The peritoneal incision was extended superiorly and inferiorly to the bladder reflection with good visualization of the bladder. The Jey retractor was inserted and the vesicouterine peritoneum was identified and intraabdominal survey revealed scant clear peritoneal fluid and a thinned out lower uterine segment. The bladder was cut out at the operative field using an Jey retractor. The lower uterine segment was incised with the scalpel, the amniotic sac was ruptured during incision and clear fluid was noted. The uterine incision was extended bluntly with lateral and upward traction. The fetus was in cephalic presentation. The head was elevated out of the pelvis with special attention care to avoid using the uterus as a fulcrum, gentle fundal pressure was applied once the head was brought in through incision. The infant was delivered with no difficulty. The mouth and nose were suctioned with the bulb by the welfare eligibility interviewer, the cord was clamped and cut. The was handed off. IV oxytocin was initiated to facilitate uterine contractions. The placenta was delivered intact with manual massage to the uterine fundus. The uterus was then exteriorized, inside of the uterus was gently wiped with a lap sponge to make sure complete removal of placental membranes. The uterine incision was closed with an 0 Vicryl suture in a running locking Electronically Signed By: AVA RICHARD MD 09/04/24 0853 PATIENT NAME: MERRY NOBLE OPERATIVE REPORT DATE OF : [birth year] REPORT #: [id number] PHYSICIAN: AVA RICHARD MD PCP: AUSTIN FIGUEREDO PA-C REPORT IS CONFIDENTIAL AND NOT TO BE RELEASED WITHOUT AUTHORIZATION [facility] [address] [place] [id number] Signed fashion. A second 0 Vicryl suture was utilized for imbrication of the incision. The ovaries and tubes were found to be normal. The uterus, tubes, and ovaries were then returned to the abdominal cavity. The Jey retractor was removed. The blood clots and fluids were wiped out of the abdomen and pelvis with moist laparotomy sponges. The uterine incision was reinspected and good hemostasis was noted. The rectus muscle was closed using a 3-0 Vicryl stitch in an interrupted fashion. The fascia was closed with 2-0 Vicryl stitches meeting in the middle. The subcutaneous layer was closed with 3-0 Vicryl stitch in an interrupted fashion. Skin was closed with a 4-0 Monocryl suture in a subcuticular fashion with a Dermabond bandage. The patient tolerated the procedure well. Counts were correct x2. The patient was taken to the recovery room in stable condition. Ava Richard MD /MODL /[id number] Copies: ~ Electronically Signed By: AVA RICHARD MD 09/04/24 0853 PATIENT NAME: MERRY NOBLE OPERATIVE REPORT DATE OF : [birth year] REPORT #: [id number] PHYSICIAN: AVA RICHARD MD PCP: AUSTIN FIGUEREDO PA-C REPORT IS CONFIDENTIAL AND NOT TO BE RELEASED WITHOUT AUTHORIZATION
[2024-09-04] MEDS ORDERED: PROCHLORPERAZINE EDISYLATE 10 MG/2 ML VIAL IV PRN (09:15)
[2024-09-04] MEDS ORDERED: ondansetron HCL 4 MG/2 ML VIAL IV PRN (09:15)
[2024-09-04] MEDS ORDERED: IBUPROFEN 600 MG TAB PO SCH (14:00)
== END 2024-09-05 10:20 | disposition home or self-care (01) | DRG 788 ==
LOC: FBC 09-03 04:52
PROVIDERS: ADMIT Student in an Organized Health Care Education/Training Program; ATTEND Student in an Organized Health Care Education/Training Program
PROC: 10D00Z1 Extraction of Products of Conception, Low, Open Approach (ICD-10-PCS; principal; 2024-09-03 09:00)
DX: O34.211 Maternal care for low transverse scar from previous cesarean delivery (principal); Z3A.39 39 weeks gestation of pregnancy; Z37.0 Single live birth
CPT/HCPCS: 01961; 36415; 76942; 80307; 85027; 86850; 86900; 86901; A9270; J0690; J1100; J1885; J2003; J2274; J2371; J2405; J2590; J2795; J3010; J7121

== ENCOUNTER 2024-09-14 16:33 | Emergency (ER) | payer OTHER ==
[~2024-09-14] VITALS: Ht 175.3 cm; Wt 87.5 kg
[2024-09-14 16:57] LABS: BASOPHILS 0.4 % (0-2); EOSINOPHILS 0.4 % (0-6); HEMATOCRIT 37.4 % (35.0-50.0); HEMOGLOBIN 12.4 g/dL (12.0-18.0); MCHC 33.1 g/dl (30-36); MCV 87.7 fl (81-99); MONOCYTES 2.9 % (0-12); NEUTROPHILS 89.3 % (39-80); PLATELET COUNT 325 K/uL (140-440); RBC 4.27 M/ul (4.3-5.7)
[2024-09-14] MEDS ORDERED: SODIUM CHLORIDE 0.9% 1,000 ML IV PRN (17:00)
[2024-09-14 17:14] LABS: ALBUMIN 3.3 g/dL (3.4-5.0); ALBUMIN/GLOBULIN RATIO 0.69 (1.1-2.4); ANION GAP 17.7 (7-21); BILIRUBIN, TOTAL 0.2 ng/dL (0.2-1.0); BUN/CREATININE RATIO 21.62 (6.0-28.6); CALCIUM 9.1 mg/dL (8.5-10.1); CREATININE, SERUM 1.11 mg/dL (0.55-1.02); POTASSIUM 3.7 mmol/L (3.5-5.1); PROTEIN, TOTAL 8.1 g/dL (6.4-8.2)
[2024-09-14 17:46] LABS: BILIRUBIN, URINE NEGATIVE (negative); BLOOD/HGB, URINE MODERATE (Negative); KETONE, URINE NEGATIVE (Negative); LEUK ESTERASE, URINE NEGATIVE (negative); NITRITE, URINE NEGATIVE (negative)
[2024-09-14 17:52] LABS: BACTERIA, URINE NONE SEEN /hpf (negative); CASTS, URINE NONE SEEN \\lpf; COLLECTION TYPE, URINE CLEAN CATCH; CRYSTALS, URINE NONE SEEN (0-1+); EPITHELIAL CELLS, URINE NONE SEEN /lpf (0-1+); REFLEX CULTURE, URINE No (No); WHITE BLOOD CELLS, URINE 0-1 /HPF (0-5)
[2024-09-14 18:16] LABS: INFLUENZA B NAA NEGATIVE (NEGATIVE); RESPIRATORY SYNCYTIAL VIR NAA NEGATIVE (NEGATIVE)
[2024-09-14 19:21] VITALS: BP 103/70
== END 2024-09-14 19:23 | disposition home or self-care (01) ==
LOC: ED 16:33
PROVIDERS: Emergency Medicine
DX: R50.9 Fever, unspecified (principal); Z91.018 Allergy to other foods; Z11.52 Encounter for screening for COVID-19
CPT/HCPCS: 36415; 80053; 81001; 85025; 87502; 99283; J7030; U0002

== ENCOUNTER 2025-09-20 01:54 | Emergency (ER) | payer BC, OTHER ==
[~2025-09-20] VITALS: Ht 175.3 cm; Wt 85.0 kg
[2025-09-20] MEDS ORDERED: PENICILLIN V P500 MG PO (03:22)
[2025-09-20] MEDS ORDERED: PENICILLIN V POTASSIUM 500 MG HOME.PACK PO ONE (03:30)
[2025-09-20 03:46] VITALS: BP 118/70
== END 2025-09-20 03:47 | disposition home or self-care (01) ==
LOC: ED 01:54
DX: J02.9 Acute pharyngitis, unspecified (principal)
CPT/HCPCS: 87651; 99283